=== PATIENT | female | born 1965 | race Caucasian/White ===

== ENCOUNTER 2018-09-05 22:01 | Emergency (ER) | payer MEDICAID ==
[~2018-09-05] VITALS: Ht 167.6 cm; Wt 92.1 kg
[2018-09-05 22:24] VITALS: BP_SYST 135
[2018-09-05] MEDS ORDERED: IPRATROPIUM BROM 0.5 MG/2.5 ML VIAL.NEB (ATROVENT) IH ONE (23:45)
[2018-09-05] MEDS ORDERED: LevALBUTEROL HCL 1.25 MG/0.5 ML *CONC.* VIAL.NEB (XOPENEX CONC.) INH ONE (23:45)
[2018-09-06] MEDS ORDERED: LevALBUTEROL HCL 1.25 MG/0.5 ML *CONC.* VIAL.NEB (XOPENEX CONC.) INH ONE ×3 (00:40→01:00)
[2018-09-06] MEDS ORDERED: PREDNISONE 20 MG TABLET PO ONE (02:30)
[2018-09-06 02:45] VITALS: BP_SYST 134
== END 2018-09-06 02:45 | disposition home or self-care (01) ==
LOC: SED 22:01
DX: J45.901 Unspecified asthma with (acute) exacerbation (principal); I10 Essential (primary) hypertension; E11.9 Type 2 diabetes mellitus without complications; Z88.5 Allergy status to narcotic agent
CPT/HCPCS: 81025; 94640 ×2; 99285; J7512; J7612; 99284

== ENCOUNTER 2018-10-14 19:22 | Emergency (ER) | payer MEDICAID ==
[~2018-10-14] VITALS: Ht 167.6 cm; Wt 93.9 kg
[2018-10-14 19:38] VITALS: BP_SYST 127
[2018-10-14] MEDS ORDERED: NACL 0.9% 1,000 ML IV ONE (20:16)
[2018-10-14 20:39] LABS: BASOPHILS # (AUTO) 0.1 K/uL (0.0-0.2); BASOPHILS % (AUTO) 0.4 % (0.0-2.0); EOSINOPHILS # (AUTO) 0.1 K/uL (0.0-0.4); EOSINOPHILS % (AUTO) 1.2 % (0.0-4.0); HEMATOCRIT 44.5 % (36-48); HEMOGLOBIN 14.9 g/dL (12.0-16.0); LYMPHOCYTES # (AUTO) 1.2 K/uL (1.0-5.5); LYMPHOCYTES % (AUTO) 10.1 % (20.5-51.5); MEAN CORPUSCULAR HEMOGLOBIN 30 pg (27-31); MEAN CORPUSCULAR HGB CONC 34 % (32-36); MEAN CORPUSCULAR VOLUME 90 fL (79.0-98.0); MONOCYTES # (AUTO) 0.7 K/uL (0.0-1.0); MONOCYTES % (AUTO) 5.4 % (1.7-9.3); NEUTROPHILS # (AUTO) 10.2 K/uL (1.8-7.7); NEUTROPHILS % (AUTO) 82.9 % (40.0-70.0); PLATELET COUNT (AUTO) 356 K/uL (130-430); RED BLOOD CELL COUNT(AUTO) 4.98 MIL/uL (4.2-6.2); RED CELL DISTRIBUTION WIDTH 14.1 % (9.0-15.0); WHITE BLOOD COUNT (AUTO) 12.3 K/uL (4.8-10.8)
[2018-10-14 20:49] LABS: ANION GAP 8 (5-15); CHLORIDE 101 mmol/L (98-107); GLUCOSE 130 mg/dL (70-99); POTASSIUM 3.8 mmol/L (3.5-5.1); SODIUM SERUM 139 mmol/L (136-145); UREA NITROGEN, BLOOD 19 mg/dL (8-21)
[2018-10-14 20:50] LABS: GFR AFRICAN AMERICAN 97 mL/min (>90)
[2018-10-14 20:58] LABS: ALANINE AMINOTRANSFERASE 32 U/L (12-78); ALBUMIN 3.6 g/dL (3.4-4.8); ASPARTATE AMINOTRANSFERASE 24 U/L (10-37); TOTAL BILIRUBIN 0.5 mg/dL (0.0-1.0)
[2018-10-14 21:54] VITALS: BP_SYST 127
== END 2018-10-14 21:54 | disposition home or self-care (01) ==
LOC: SED 19:22
DX: E11.649 Type 2 diabetes mellitus with hypoglycemia without coma (principal); I10 Essential (primary) hypertension; Z88.5 Allergy status to narcotic agent
CPT/HCPCS: 36415; 71045; 80053; 82962; 84484; 85025; 93005; 96360; 99284; J7030

== ENCOUNTER 2018-11-04 22:07 | Inpatient (IN) | payer MEDICAID ==
[~2018-11-04] VITALS: Ht 167.6 cm; Wt 98.0 kg
--- NOTE | 2018-11-04 22:11 | NUR ---
Placed in room 1 . Placed on orthodontist vice president, blood pressure machine and pulse oximeter. To gown for exam. Side rails up. Report given to Gadiel OWUSU.
--- NOTE | 2018-11-04 22:11 | NUR ---
Per ALS, pt was found by her with ALOC. He gave her apple juice, then called ambulance. Upon arrival, accucheck was 46. Pt was given D10 IVP and reports that repeat accucheck was 134 mg/dL just DESOLDERER. Pt arrives AAOx4, denies c/o C/P or SOB, non-diaphoretic, VSS.
[2018-11-04 22:12] VITALS: BP_SYST 132
--- NOTE | 2018-11-04 22:24 | NUR ---
Accucheck 57 mg/dL. Pt AAOx4, non-diaphoretic. Dr. Hall notified.
--- NOTE | 2018-11-04 22:30 | NUR ---
[place] juice 8.4 Oz given PO.
--- NOTE | 2018-11-04 23:05 | NUR ---
Repeat accucheck 58 mg/dL. Pt AAOx4, c/o dizziness. Dr. Hall notified.
--- NOTE | 2018-11-04 23:14 | NUR ---
Lab at bedside.
[2018-11-04] MEDS ORDERED: DEXTROSE 50% JECT 50 ML DISP.SYRIN IVP ONE (23:15)
[2018-11-04] MEDS ORDERED: D5NS 1,000 ML IV ONE (23:15)
[2018-11-04] MEDS ORDERED: DEXTROSE 50% JECT 50 ML DISP.SYRIN ONE (23:19)
[2018-11-04 23:23] LABS: BASOPHILS # (AUTO) 0.1 K/uL (0.0-0.2); BASOPHILS % (AUTO) 0.7 % (0.0-2.0); EOSINOPHILS # (AUTO) 0.2 K/uL (0.0-0.4); EOSINOPHILS % (AUTO) 1.7 % (0.0-4.0); HEMATOCRIT 42.3 % (36-48); LYMPHOCYTES # (AUTO) 1.5 K/uL (1.0-5.5); LYMPHOCYTES % (AUTO) 11.7 % (20.5-51.5); MEAN CORPUSCULAR HEMOGLOBIN 30 pg (27-31); MEAN CORPUSCULAR HGB CONC 33 % (32-36); MEAN CORPUSCULAR VOLUME 90 fL (79.0-98.0); MONOCYTES # (AUTO) 0.8 K/uL (0.0-1.0); MONOCYTES % (AUTO) 6.2 % (1.7-9.3); NEUTROPHILS % (AUTO) 79.7 % (40.0-70.0); PLATELET COUNT (AUTO) 271 K/uL (130-430); RED BLOOD CELL COUNT(AUTO) 4.68 MIL/uL (4.2-6.2); WHITE BLOOD COUNT (AUTO) 12.6 K/uL (4.8-10.8)
[2018-11-04 23:43] LABS: CREATININE 0.89 mg/dL (0.55-1.30); POTASSIUM 4.2 mmol/L (3.5-5.1)
[2018-11-04 23:50] LABS: ALBUMIN 3.3 g/dL (3.4-4.8); TOTAL BILIRUBIN 0.4 mg/dL (0.0-1.0)
--- NOTE | 2018-11-05 00:22 | NUR ---
Pt AAOx4, denies c/o dizziness, no c/o pain or discomfort. No needs verbalized at this time.
--- NOTE | 2018-11-05 00:22 | NUR ---
Accucheck 329 mg/dL. Dr. Hall notified. D5NS infusion stopped.
--- NOTE | 2018-11-05 02:03 | NUR ---
Accucheck 306 mg/dL. Dr. Hall notified. Pt AAOx4, denies c/o pain or discomfort, no needs verbalized. VSS.
[2018-11-05] MEDS ORDERED: D5W 1,000 ML IV PRN (02:57)
[2018-11-05] MEDS ORDERED: DEXTROSE 50% JECT 50 ML DISP.SYRIN IVP PRN ×2 (03:00→14:15)
[2018-11-05] MEDS ORDERED: GLUCOSE 15 GM GEL (in 37.5 GM TUBE) PO PRN (03:00)
[2018-11-05] MEDS ORDERED: D5NS 1,000 ML IV SCH (03:00)
--- NOTE | 2018-11-05 03:10 | NUR ---
Patient will be admitted to care of Dr. Luis. Admitted to Med/Surg unit. Will go to room 134B. Belongings list completed. Summary report printed. Phone report given to UMER Read.
[2018-11-05 03:19] VITALS: BP_SYST 132
--- NOTE | 2018-11-05 03:19 | NUR ---
Admission Note Received patient from ER with diagnosis of UNCONTROLLED HYPOGLYCEMIA . Initial Plan of Care discussed-patient verbalized understanding. Family at bedside. Oriented to room, call light, pain management and safety.
[2018-11-05 03:23] VITALS: BP_SYST 132
--- NOTE | 2018-11-05 03:30 | NUR ---
ADMISSION Pt alert/ oriented to self, time, and place. IVF infusing LAC 20ga no redness or swelling noted @ site. No c/o diaphoresis, or confusion.
[2018-11-05 08:00] VITALS: BP_SYST 121
--- NOTE | 2018-11-05 08:00 | NUR ---
AM ASSESSMENT. PT AWAKENED TO VERBAL COMMAND, IVF WITH NS AT 50 ML PER HR, AFEBRILE, DENIES BODY DISCOMFORTS, WILL CONTINUE TO MONITOR.
[2018-11-05] MEDS ORDERED: SYN50 PO (09:37)
[2018-11-05] MEDS ORDERED: NOR10 PO (09:37)
[2018-11-05] MEDS ORDERED: LISI1TAB11 PO (09:37)
[2018-11-05] MEDS ORDERED: INSU100I26 SQ (09:37)
[2018-11-05] MEDS ORDERED: INSU100V35 SQ (09:37)
[2018-11-05] MEDS ORDERED: SITA100T11 PO (09:37)
--- NOTE | 2018-11-05 12:17 | NUR ---
FSBS. CHECKED BLOOD SUGAR BEFORE LUNCH, 377 MG/DL, IVF INFUSING D5NS AT 50 ML PER HR.
--- NOTE | 2018-11-05 12:19 | NUR ---
PAGED DR. UGARTE PER NURSE DIALED [phone] SPOKE TO ALEISHA.
--- NOTE | 2018-11-05 12:30 | NUR ---
. SPOKE TO DR PAN ABOUT PT'S CONCERN ON HER MEDICATIONS, HE STATED HE WILL BE COMING TO SEE THE PATIENT.
[2018-11-05 12:57] VITALS: BP_SYST 135
[2018-11-05 14:15] LABS: BILIRUBIN,URINE NEGATIVE (NEGATIVE); BLOOD, URINE TRACE (NEGATIVE); CLARITY/URINE CLEAR (CLEAR); COLOR,URINE YELLOW (YELLOW); GLUCOSE,URINE 3+ (NEGATIVE); KETONES,URINE NEGATIVE (NEGATIVE); LEUKOCYTE ESTERASE ,URINE NEGATIVE (NEGATIVE); NITRITE, URINE NEGATIVE (NEGATIVE); PROTEIN URINE NEGATIVE (NEGATIVE); UROBILINOGEN,URINE 0.2 (0.2-1.0)
[2018-11-05] MEDS ORDERED: INSULIN REGULAR, HUMAN 100 UNITS/ML, 10 ML VIAL (humuLIN R) SUBCUT PRN (14:15)
[2018-11-05 14:19] LABS: BACTERIA,URINE FEW /HPF (None Seen); WBC,URINE 0-3 /HPF (0-3)
--- NOTE | 2018-11-05 14:42 | NUR ---
URINALYSIS. 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
[2018-11-05 15:14] VITALS: BP_SYST 134
--- NOTE | 2018-11-05 15:35 | NUR ---
DISCHARGE HOME. ALL PERSONAL BELONGINGS WITH PATIENT, IV AND NAME TAG DISCONTINUED, INSTRUCTION PROVIDED TO PATIENT, WHEELED OUT PT, ACCOMPANIED BY SPOUSE.
== END 2018-11-05 15:35 | disposition home or self-care (01) | DRG 420 ==
LOC: SED 22:07 → SMU 11-05 02:57
PROVIDERS: ADMIT Family Medicine; ATTEND Family Medicine
DX: E10.649 Type 1 diabetes mellitus with hypoglycemia without coma (principal); E44.1 Mild protein-calorie malnutrition; E03.9 Hypothyroidism, unspecified; I10 Essential (primary) hypertension; Z88.6 Allergy status to analgesic agent; Z79.4 Long term (current) use of insulin; Z79.899 Other long term (current) drug therapy; Z83.3 Family history of diabetes mellitus
CPT/HCPCS: 36415; 80053; 81000-TC; 82962; 85025; 93005; 96360; 96361; 99285; J7042

== ENCOUNTER 2019-05-13 21:02 | Emergency (ER) | payer MEDICAID ==
[~2019-05-13] VITALS: Ht 170.2 cm; Wt 91.2 kg
[2019-05-13 21:02] VITALS: BP_SYST 129
[~2019-05-13 21:02] MED LIST: INSU100I26 SQ; INSU100V35 SQ; LISI1TAB28 PO; NOR10 PO; SYN50 PO
[2019-05-13] MEDS ORDERED: NACL 0.9% 1,000 ML IV ONE (21:12)
[2019-05-13 21:47] LABS: BASOPHILS # (AUTO) 0.1 K/uL (0.0-0.2); BASOPHILS % (AUTO) 0.6 % (0.0-2.0); EOSINOPHILS # (AUTO) 0.3 K/uL (0.0-0.4); EOSINOPHILS % (AUTO) 2.4 % (0.0-4.0); HEMATOCRIT 42.6 % (36-48); HEMOGLOBIN 14.5 g/dL (12.0-16.0); LYMPHOCYTES % (AUTO) 19.2 % (20.5-51.5); MEAN CORPUSCULAR HEMOGLOBIN 31 pg (27-31); MEAN CORPUSCULAR HGB CONC 34 % (32-36); MEAN CORPUSCULAR VOLUME 91 fL (79.0-98.0); MONOCYTES # (AUTO) 0.9 K/uL (0.0-1.0); MONOCYTES % (AUTO) 8.2 % (1.7-9.3); NEUTROPHILS # (AUTO) 7.3 K/uL (1.8-7.7); NEUTROPHILS % (AUTO) 69.6 % (40.0-70.0); PLATELET COUNT (AUTO) 261 K/uL (130-430); RED BLOOD CELL COUNT(AUTO) 4.69 MIL/uL (4.2-6.2); RED CELL DISTRIBUTION WIDTH 13.9 % (9.0-15.0); WHITE BLOOD COUNT (AUTO) 10.5 K/uL (4.8-10.8)
[2019-05-13 22:14] LABS: ALBUMIN 3.5 g/dL (3.4-4.8); CALCIUM 7.8 mg/dL (8.4-11.0); CREATININE 0.82 mg/dL (0.55-1.30); TOTAL BILIRUBIN 0.6 mg/dL (0.0-1.0)
[2019-05-13 23:20] VITALS: BP_SYST 118
== END 2019-05-13 23:20 | disposition home or self-care (01) ==
LOC: SED 21:02
DX: E11.649 Type 2 diabetes mellitus with hypoglycemia without coma (principal); I10 Essential (primary) hypertension; Z88.2 Allergy status to sulfonamides; Z88.5 Allergy status to narcotic agent; Z79.899 Other long term (current) drug therapy
CPT/HCPCS: 36415; 71045; 80053; 84484; 85025; 93005; 96360; 96361; 99284; J7030